=== PATIENT | male | born 1960 | race Hispanic/Latino ===

== ENCOUNTER 2022-03-27 12:22 | Outpatient (CLI) | payer MEDICARE ==
[2022-03-27 13:50] LABS: Hemoglobin 15.5 gm/dl (11.8-15.2); Mean Corpuscular HGB Conc 34 % (32-34); Mean Corpuscular Volume 106 fl (84-94); Platelet Count 160 K/mm3 (140-440); Red Blood Count 4.34 M/mm3 (3.65-5.03); Red Cell Distribution Width 16.7 % (13.2-15.2)
[2022-03-27 13:57] LABS: Blood Urea Nitrogen 10 mg/dL (9-20); Calcium 9.9 mg/dL (8.4-10.2); Hemolysis Index 5
[2022-03-27 14:00] LABS: INR 0.97 (0.87-1.13)
[2022-03-27 14:03] LABS: BUN/Creatinine Ratio 14
== END 2022-03-27 12:23 | disposition home or self-care (01) ==
LOC: LAB 12:22
PROVIDERS: ATTEND Internal Medicine
DX: E78.49 Other hyperlipidemia (principal); R73.03 Prediabetes; I25.10 Atherosclerotic heart disease of native coronary artery without angina pectoris
CPT/HCPCS: 36415; 80048; 85027; 85610

== ENCOUNTER 2022-03-29 05:53 | Day surgery (SDC) | payer MEDICARE ==
[2022-03-29] MEDS ORDERED: VERAPAMIL 5 MG/2 ML INJ ONE (06:41)
[2022-03-29] MEDS ORDERED: NITROGLYCERIN SYRINGE 3 ML ONE (06:41)
[2022-03-29] MEDS ORDERED: HEPARIN/NS 5000 UNIT/500ML 1,000 ML IR ONE (06:41)
[2022-03-29] MEDS ORDERED: LIDOCAINE (2%) 20 MG/1 ML VIAL 20 ML MDV INFILTRATI ONE (06:43)
[2022-03-29] MEDS ORDERED: LIDOCAINE MPF (2%) 20 MG/1 ML VIAL 5 ML ONE (06:51)
[2022-03-29] MEDS ORDERED: propofoL 200 MG/20 ML VIAL IV ONE ×2 (06:51)
[2022-03-29] MEDS ORDERED: ROCURONIUM 50 MG/5 ML INJ IV ONE (06:52)
[2022-03-29] MEDS ORDERED: ASPIRIN 81 MG TAB CHEW ONE (06:53)
[2022-03-29] MEDS ORDERED: MIDAZOLAM 2 MG/2 ML INJ ONE (06:53)
[2022-03-29] MEDS ORDERED: SODIUM CHLORIDE 0.9% 500 ML 500 ML IV SCH (07:00)
[2022-03-29] MEDS ORDERED: ASPIRIN 81 MG TAB CHEW PO ONE (07:00)
[2022-03-29] MEDS ORDERED: SODIUM CHLORIDE 0.9% 1000 ML 1,000 ML IV SCH (07:00)
[2022-03-29] MEDS ORDERED: ASPIRIN EC 325 MG TAB PO NR (07:00)
--- NOTE | 2022-03-29 07:03 | Anesthesia Day of Surgery ---
Anesthesia Day of Surgery - Day of Surgery Patient Examined: Yes Patient H&P Reviewed: Yes Patient is NPO: Yes
--- NOTE | 2022-03-29 07:03 | Anesthesia Consultation ---
Anesthesia Consult and Med Hx Date of service: 03/29/22 - Airway Anesthetic Teeth Evaluation: Poor (multiple chipped teeth) ROM Head & Neck: Adequate Mental/Hyoid Distance: Adequate Mallampati Class: Class II Intubation Access Assessment: Probably Good - Pre-Operative Health Status ASA Pre-Surgery Classification: ASA3 Proposed Anesthetic Plan: General, MAC - Pulmonary Hx Smoking: Yes (1 pack/day x 25 years) Hx Sleep Apnea: Yes - Cardiovascular System Hx Hypertension: Yes Hx Coronary Artery Disease: Yes Hx Heart Attack/AMI: Yes (2014) Hx Angina: Yes Hx Peripheral Vascular Disease: Yes - Central Nervous System Hx Back Pain: Yes (lower back pain with shooting pain down left leg) - Endocrine Hx Non-Insulin Dependent Diabetes: Yes - Other Systems Hx Cancer: No
[2022-03-29] MEDS: HEPARIN 10,000 UNITS/10 ML VIAL ONE ×3 (07:22→07:38)
[2022-03-29] MEDS ORDERED: fentaNYL 100 MCG/2 ML INJ ONE (07:24)
--- NOTE | 2022-03-29 08:30 | Cardiac Catherization Report ---
DATE OF SERVICE: 03/29/2022 LEFT HEART CATH/IFR CLINICAL INFORMATION: A 61-year-old gentleman had a myocardial infarction in 2016 with LAD stenting and had a diagonal lesion that was not stentable. Circ artery had a 50% prox lesion. RCA was nondominant. The patient has normalization of LV function. The patient's stress test shows infarction with karen-infarct ischemia in the anterior and anterior apical lateral region. Procedure was done with anesthesia given the patient's chronic back issues. The patient has diabetes, hypertension, cholesterol, COPD. DESCRIPTION OF PROCEDURE: Left heart catheterization performed via the right radial artery, sterile technique, local anesthesia. A 6-Indian radial sheath inserted, left system with JL3.5 catheter. Left main is large and patent. LAD proximal, mid stent patent across a small to medium caliber diagonal, which has an ostial 90%, mid 90%. Diagonal 2 is a small caliber, was patent. The apical LAD is 100%, about 12 mm of occlusion of a less than 1.5 mm vessel. Circumflex is a large, dominant vessel, prox patent and bifurcates into an OM1 that is proximal ostial 40% and at that bifurcation, there is a 50% circ lesion. Then the AV groove is a large caliber vessel, patent with mild luminal irregularities. OM2 is a small caliber vessel, is patent. OM3 is a medium caliber vessel, patent. LPDA is a medium caliber, is patent. RCA engaged with a JR4, very small, nondominant vessel, patent. LV gram done in BRITISH and NAVA view, shows normal LV function. EF 55-60%, LVEDP 18 mmHg, LV is 128, aortic is 120/92. No gradient across the aortic valve on pullback. So further investigation of the bifurcating circ lesion. So engaged the left system, an EBU 3.5 guiding catheter. Used an IF wire, normalization across the lesion and IFR was 1, which is nonsignificant. Removed IF wire. Multiple angiograms showed continued DONA 3 flow, same 50% stenosis. No dissection or perforation noted. Guiding catheter taken over a guidewire. A 6-Indian radial sheath was discontinued. Radial band applied. No hematoma, no bleeding. SUMMARY: Nonobstructive disease. Left main patent. LAD proximal, mid patent across the diagonal 1 which has an ostial 90%, mid 90%. Rest of the LAD is patent up to the apical LAD, which becomes a 1.5 mm vessel, is 100%. Circumflex, large, dominant vessel, proximal patent, right at the bifurcation. OM1 has a 40-50% and then at the bifurcation, 50% circumflex. Rest of the circumflex is patent. OM2, small caliber vessel, patent. OM3 medium caliber, patent. LPDA is small to medium caliber, patent. RCA is nondominant, patent with normal LV function. The patient tolerated the procedure. Continue aggressive medical management. Smoking cessation, discussed this in detail with the patient and the patient's and it was done with anesthesia. TID: [id number] RECEIPT: [id number] DARYL/JESSICA
[2022-03-29] MEDS ORDERED: diphenhydrAMINE 50 MG/ML VIAL IV NR (08:36)
--- NOTE | 2022-03-29 08:37 | Short Stay Summary ---
Short Stay Documentation Date of service: 03/29/22 - History H&P: obtained from office - Allergies and Medications Current Medications: Allergies No Known Allergies Allergy (Verified 12/20/15 07:58) Home Medications Medication Instructions Recorded Confirmed Last Taken Type Aspirin EC [Halfprin EC] 81 mg PO DAILY 12/20/15 03/29/22 03/29/22 07:03 History Atorvastatin [Lipitor] 80 mg PO DAILY 12/20/15 03/29/22 03/28/22 History 80 mg Baclofen [Lioresal] 10 mg PO PRN PRN 12/20/15 03/29/22 03/28/22 History 10 mg Clopidogrel Bisulfate [Plavix] 75 mg PO DAILY 12/20/15 03/29/22 03/29/22 06:30 History Glimepiride [Amaryl] 2 mg PO BID 12/20/15 03/29/22 03/28/22 History 2 mg Metformin HCl [Metformin HCl ER] 1,000 mg PO BID 12/20/15 03/29/22 03/28/22 History 1000 mg lisinopriL [Zestril TAB] 40 mg PO DAILY 12/20/15 03/29/22 03/28/22 History 40 mg Chlorthalidone [Thalitone] 25 mg PO DAILY 03/29/22 03/29/22 03/28/22 History 25 mg HYDROcodone/APAP 10-325 [[place] 1 tab PO Q4H PRN 03/29/22 03/29/22 03/28/22 History 10-325 mg TAB] 1 tab Pioglitazone [Actos] 15 mg PO QAM 03/29/22 03/29/22 03/28/22 History 15 mg carvediloL [Coreg] 25 mg PO BID 03/29/22 03/29/22 03/28/22 History 25 mg Active Medications Sodium Chloride (Nacl 0.9% 1000 Ml) 1,000 mls @ 42 mls/hr IV DIRECT LYNDSAY Stop: 03/29/22 20:00 Last Admin: 03/29/22 07:00 Dose: 0 mls - Physical exam Integumentary: other (Dressing clean dry and intact with no signs of bleeding. Patient had small hematoma that was expressed) - Brief post op/procedure progress note Date of procedure: 03/29/22 Pre-op diagnosis: Abnormal stress test Post-op diagnosis: other (Nonobstructive coronary artery disease) Estimated blood loss: minimal - Hospital course Hospital course: Patient presents today for cardiac cath due to abnormal stress test. Patient found to have nonobstructive coronary artery disease. See cath report for full details. Patient to be discharged home and follow-up as an outpatient - Disposition Condition at discharge: Good Disposition: 01 HOME / SELF CARE / HOMELESS - Discharge Diagnoses (1) Coronary artery disease Status: Acute (2) Hypertension Status: Acute (3) Diabetes Status: Acute (4) RAMÍREZ (obstructive sleep apnea) Status: Acute Short Stay Discharge Plan Activity: advance as tolerated Diet: low fat, low salt Wound: keep clean and dry, per your surgeon's advice Follow up with: LANETTE JOEL PA [Primary Care Provider] - 7 Days ANSELMO YUEN MD [Staff Physician] - 7 Days Forms: CardCath PCI D/C Instructions
[2022-03-29] MEDS ORDERED: HYDROcodone/ACETAMINOPHEN 5-325 MG TAB PO PRN (09:00)
[2022-03-29] MEDS ORDERED: traMADol 50 MG TAB PO PRN (09:00)
--- NOTE | 2022-03-29 11:41 | Post Anesthesia Evaluation ---
- Post Anesthesia Evaluation Patient Participated: Yes Airway Patent: Yes Stable Respiratory Function: Yes Nausea/Vomiting: No Temp > 96.8F: Yes Pain Manageable: Yes Adequeate Hydration: Yes Anesthesia Complications: No
[2022-03-29 12:07] VITALS: BP 140/77
--- NOTE | 2022-03-30 09:42 | Electrocardiograph Report ---
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
== END 2022-03-29 12:50 | disposition home or self-care (01) ==
LOC: CATHLABREC 05:53
PROVIDERS: ATTEND Internal Medicine
DX: I25.118 Atherosclerotic heart disease of native coronary artery with other forms of angina pectoris (principal); I10 Essential (primary) hypertension; E11.9 Type 2 diabetes mellitus without complications; G47.33 Obstructive sleep apnea (adult) (pediatric); R94.39 Abnormal result of other cardiovascular function study; F17.210 Nicotine dependence, cigarettes, uncomplicated; M19.90 Unspecified osteoarthritis, unspecified site; Z95.5 Presence of coronary angioplasty implant and graft; Z87.442 Personal history of urinary calculi; Z98.890 Other specified postprocedural states; Z79.899 Other long term (current) drug therapy; Z79.82 Long term (current) use of aspirin; Z80.8 Family history of malignant neoplasm of other organs or systems; Z83.3 Family history of diabetes mellitus; Z82.5 Family history of asthma and other chronic lower respiratory diseases; Z82.49 Family history of ischemic heart disease and other diseases of the circulatory system
CPT/HCPCS: 82962; 93005; 93458; 93571; C1769; C1887; C1894; J1200; J1644; J1815; J2250; J2704; J3010; J3490; J7030; J7040; Q9967